=== PATIENT | female | born 1985 | race American Indian/Alaskan Native ===

== ENCOUNTER 2017-02-20 18:43 | Emergency (ER) | payer OTHER ==
[2017-02-20 19:28] VITALS: BP 110/70
--- NOTE | 2017-02-20 23:16 | Cat Scan Report ---
FINAL REPORT EXAM: CT CERVICAL SPINE WO CON HISTORY: neck pain COMPARISON: None available. TECHNIQUE: Axial images obtained through the cervical spine. Additional sagittal and coronal reformatted images were obtained. FINDINGS: Straightening of the normal lordotic curvature of the cervical spine. Cervical vertebral body heights are preserved. No acute fracture or traumatic subluxation. Odontoid process, articular pillars and occipital condyles are intact. No significant bony encroachment upon the canal or foramen. Diffuse heterogeneity of the thyroid gland with several subcentimeter hypodensities. IMPRESSION: No acute fracture or subluxation of the cervical spine. There is straightening of the normal lordotic curvature which may relate to patient positioning or muscle spasm.
--- NOTE | 2017-02-20 23:40 | Cat Scan Report ---
FINAL REPORT EXAM: CT LUMBAR SPINE WO CON HISTORY: lumbar pain COMPARISON: None available. TECHNIQUE: Contiguous axial images were obtained. Additional sagittal and coronal reformatted images were obtained. FINDINGS: Lumbar vertebral body heights are preserved. Minimal loss of disc height throughout the lumbar spine. No acute fracture traumatic subluxation. Minimal levoconvex curvature which may be positional. No significant bony encroachment on the canal or foramen throughout the lumbar spine. Mild facet joint changes at the L5-S1 level. Visualized SI joints are preserved. Paraspinal musculature is grossly unremarkable. IMPRESSION: No acute fracture traumatic subluxation lumbar spine. Minimal degenerative changes of the lumbar spine. No significant canal or foraminal narrowing.
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
[2017-02-21] MEDS ORDERED: FLEXERIL PO ONE (00:11)
[2017-02-21] MEDS ORDERED: NORCO 5/325 PO ONE (00:11)
== END 2017-02-21 01:12 | disposition home or self-care (01) ==
LOC: ED 18:43
DX: S39.012A Strain of muscle, fascia and tendon of lower back, initial encounter (principal); M54.5 Low back pain; M62.838 Other muscle spasm; V49.49XA Driver injured in collision with other motor vehicles in traffic accident, initial encounter; Y93.9 Activity, unspecified; Y92.9 Unspecified place or not applicable; Y99.9 Unspecified external cause status
CPT/HCPCS: 72125; 72131; 81025; 99284